=== PATIENT | male | born 1945 | race Caucasian/White ===

== ENCOUNTER 2019-08-05 07:40 | Day surgery (SDC) | payer MEDICAID ==
[~2019-08-05] VITALS: Ht 165.1 cm; Wt 81.6 kg
[~2019-08-05 07:40] MED LIST: CIPROFLOXACIN 0.3% OPHTH SOLN 2.5ML LEFTEYE ONE; LACTATED RINGERS 1,000 ML IV SCH; TAMS-11 PO
[2019-08-05] MEDS ORDERED: METHYLPREDNISOLONE SOD SUCC 40 MG/ML VIAL ONE (08:14)
[2019-08-05] MEDS ORDERED: TOBRAMYCIN SULFATE 80MG/2ML 30ML ONE (08:38)
[2019-08-05] MEDS ORDERED: MIDAZOLAM HCL 2 MG/2 ML VIAL ONE (09:05)
[2019-08-05] MEDS ORDERED: FENTANYL CITRATE/PF 50MCG/ML 2ML VIAL ONE (09:05)
[2019-08-05] MEDS ORDERED: DIPHENHYDRAMINE 50MG/ML VIAL ONE (09:06)
[2019-08-05] MEDS ORDERED: HYDROMORPHONE HCL/PF 2MG/ML CPJ IV PRN (09:15)
[2019-08-05] MEDS ORDERED: BALANCED SALT IRRIG SOLN 15ML ONE (13:00)
[2019-08-05] MEDS ORDERED: LIDOCAINE HCL/PF 2% 20 MG/ML 10ML VIAL ONE (13:00)
== END 2019-08-05 11:25 | disposition home or self-care (01) ==
LOC: OR 07:40
PROVIDERS: ATTEND Ophthalmology
DX: H11.002 Unspecified pterygium of left eye (principal); E78.00 Pure hypercholesterolemia, unspecified; E66.9 Obesity, unspecified; N40.1 Benign prostatic hyperplasia with lower urinary tract symptoms; Z68.31 Body mass index [BMI] 31.0-31.9, adult; Z98.890 Other specified postprocedural states; Z79.899 Other long term (current) drug therapy
CPT/HCPCS: 65420; 88304; J1200; J2250; J2920; J3010; J3260; J3490